=== PATIENT | male | born 1960 | race Caucasian/White ===

== ENCOUNTER → 2019-11-25 | Outpatient (CLI) | payer OTHER ==
--- NOTE | 2019-11-25 08:36 | RAD ---
ELBOW LEFT 3V History: Left elbow pain. Injury. Technique: 3 views left elbow. Comparison: None. Findings: Normal alignment. No significant elbow joint effusion. No fracture. Olecranon and lateral epicondyles enthesophytes. Posterior elbow soft tissue swelling. Impression: 1. No acute osseous abnormality. Electronically signed by: Fortunato Santillan DO (11/25/2019 8:34 AM) [id number]
== END | disposition home or self-care (01) ==
LOC: PMG 08:13
PROVIDERS: ATTEND Physician Assistant Medical
DX: S50.02XA Contusion of left elbow, initial encounter (principal); W19.XXXA Unspecified fall, initial encounter; Y93.89 Activity, other specified; Y92.89 Other specified places as the place of occurrence of the external cause; Y99.8 Other external cause status
CPT/HCPCS: 73080